=== PATIENT | female | born 1990 | race Caucasian/White ===

== ENCOUNTER 2024-03-09 17:01 | Emergency (ER) | payer OTHER ==
[2024-03-09 17:06] VITALS: TEMP 98.1; BMI 30.4
[2024-03-09 18:36] LABS: BASO % 0.5 % (0-2.0); EOS % 0.6 % (0-4.5); HEMATOCRIT 41.8 % (32.4-45.2); HEMOGLOBIN 13.9 GM/dL (10.7-15.3); LYMPH % 19.3 % (8-40); MCH 30.8 pg (25.7-33.7); MCHC 33.3 g/dl (32.0-36.0); MEAN CELL VOLUME 92.4 fl (80-96); MEAN PLT VOLUME 6.9 fl (7.5-11.1); MONO % 5.4 % (3.8-10.2); NEUT % 74.2 % (42.8-82.8); PLATELET COUNT 307 10^3/uL (134-434); RBC 4.52 M/mm3 (3.60-5.2); WHITE BLOOD COUNT 8.2 K/mm3 (4.0-10.0)
[2024-03-09] MEDS: SODIUM CHLORIDE 0.9% 500 ML INFUS.BAG IV ONE (18:44)
[2024-03-09 18:56] LABS: POTASSIUM 4.4 mmol/L (3.5-5.1)
[2024-03-09 18:59] LABS: BLOOD UREA NITROGEN 8.1 mg/dL (7-18); CALCIUM 9.6 mg/dL (8.5-10.1)
[2024-03-09 19:00] LABS: ALBUMIN 3.7 g/dl (3.4-5.0)
[2024-03-09 19:03] LABS: CREATININE 0.7 mg/dL (0.55-1.3)
[2024-03-09 19:05] LABS: BILIRUBIN,TOTAL 0.5 mg/dL (0.2-1)
[2024-03-09 19:37] LABS: PH,URINE 7.5 (5.0-8.0); URINE APPEARANCE CLEAR; URINE BILIRUBIN NEGATIVE (NEGATIVE); URINE COLOR YELLOW; URINE GLUCOSE (UA) NEGATIVE (NEGATIVE); URINE KETONE NEGATIVE (NEGATIVE); URINE LEUK ESTERASE NEGATIVE (NEGATIVE); URINE NITRITE NEGATIVE (NEGATIVE); URINE PROTEIN NEGATIVE (NEGATIVE)
[2024-03-09 21:07] VITALS: BP 126/70; PULSE 80; RESP 18
== END 2024-03-09 21:07 | disposition home or self-care (01) ==
LOC: JER 17:01
DX: R55 Syncope and collapse (principal); R00.2 Palpitations; R20.2 Paresthesia of skin; R11.0 Nausea
CPT/HCPCS: 36415; 80053; 81003; 83735; 84439; 84443; 84484; 84703; 85025; 87086; 93005; 93010; 99284-25

== ENCOUNTER 2024-03-10 14:45 | Emergency (ER) | payer OTHER ==
[2024-03-10 14:52] VITALS: BP 147/95; PULSE 86; RESP 19; TEMP 97.9; BMI 30.4
== END 2024-03-10 17:08 | disposition home or self-care (01) ==
LOC: JER 14:45
DX: R00.2 Palpitations (principal)
CPT/HCPCS: 93005; 93010; 99283-25